=== PATIENT | male | born 1995 | race Caucasian/White ===

== ENCOUNTER 2016-04-21 01:44 | Emergency (ER) | payer BC ==
[~2016-04-21] VITALS: Ht 190.5 cm; Wt 96.1 kg
[2016-04-21 01:48] VITALS: TEMP 37; Ht 190.5 cm; Wt 96.1 kg
[2016-04-21] MEDS ORDERED: AMPH30CA3 PO (02:43)
--- NOTE | 2016-04-21 02:56 | EMERGENCY ROOM VISIT NOTE ---
History First contact with patient: 01:55 Chief Complaint: RIB PAIN Stated Complaint: DIFFICULTY BREATHING,SORE RIBS,UPPER ABD PAIN History of Present Illness The patient is a 20 year old male who presents to the Emergency Room with complaints of right-sided rib pain after he fell. Patient states he was running on the porch and jumped over the railing and dove in the snow with the tube. Patient states he jumped on the tube but hit the ground instead. This happened at noon today. It is now 2 AM in the morning. Patient states he's been drinking alcohol this afternoon but nothing recently and does not feel overly intoxicated at this time. Patient states that he went sledding four more times and fell a few more times. Patient complains of right-sided chest pain described as aching, ranging in severity currently 5 out of 10 worse with breathing and better with rest. Movement makes it worse and nothing makes it better. No prior fractures to these areas. Patient denies abdominal pain, back pain, head injury, neck pain, headache, arm pain, leg pain, numbness, tingling, drug use. Review of Systems See HPI for pertinent positives & negatives. A total of 10 systems reviewed and were otherwise negative. Past Medical/Surgical History None Social History Smoking Status: Never Smoker Smokeless Tobacco Use: No Alcohol Use: occasionally Drug Use: none Occupation Status: [employer] student Current/Historical Medications Scheduled Amphetamine-Dextroamphetamine 30MG (Adderall Xr 30MG), 30 MG PO DAILY Allergies Coded Allergies: No Known Allergies (Unverified , 04/21/16) Physical Exam Vital Signs Date Time Temp Pulse Resp B/P Pulse Ox O2 Delivery O2 Flow Rate FiO2 04/21/16 01:48 37.0 75 18 109/66 99 Room Air Physical Exam PHYSICAL EXAM: VITALS: Vitals are noted on the nurse's note and reviewed by myself. Vital signs stable. GENERAL: Pleasant male, in no acute distress, nondiaphoretic, well-developed well-nourished. SKIN: The skin was without obvious lacerations or abrasions. Capillary reflex less than 2 seconds. HEAD: Normocephalic atraumatic. EARS: External auditory canals clear, tympanic membranes pearly isidro without erythema or effusion bilaterally. No hemotympanums. No long sign. No mastoid tenderness. EYES: Pupils equal round and reactive to light and accommodation. Conjunctivae without injection, sclerae without icterus. Extraocular movements intact. NOSE: Patent, turbinates without inflammation or discharge. No sinus tenderness. No septal hematoma or bleeding. FACE: No facial bone tenderness. Full range of motion of the jaw without tenderness. MOUTH: Mucous membranes moist. Pharynx without erythema or exudate. Uvula midline. Airway patent. Tongue does not deviate. NECK: Supple without nuchal rigidity. Cervical spine is nontender. Full range of motion of the neck without tenderness. No JVD. HEART: Regular rate and rhythm without murmurs gallops or rubs. LUNGS: Clear to auscultation bilaterally without wheezes, rales or rhonchi. No dullness to percussion. No retractions or accessory muscle use. Right-sided chest wall tenderness. ABDOMEN: Positive bowel sounds x 4. Normal tympanic percussion. Soft, nontender, without masses or organomegaly. No guarding or rebound tenderness. MUSCULOSKELETAL: No tenderness of the thoracic or lumbar spine. No tenderness with pelvic rocking. Full range of motion without tenderness to palpation in all extremities. Normal gait. Strength 5/5 throughout. Peripheral pulses 2+. NEURO: Patient was alert and oriented to person place and time. Normal Mini- Mental status exam. Normal sensation to light and sharp touch. Negative Romberg and pronator drift. Cerebellar function intact. No focal neurological deficits. Medical Decision & Procedures ED Course Prior records/ancillary studies reviewed. Triage Nursing notes reviewed. The patient's history was concerning for chest pain after fall. Differential diagnosis: Etiologies such as rib fracture, pulmonary contusion, cardiac ischemia, aortic dissection, pulmonary embolism, pneumonia, pneumothorax, musculoskeletal, infections, pericarditis, myocarditis, esophageal rupture, gastrointestinal, as well as others were entertained. Physical examination: As above. ER treatment provided: Incentive spirometry On reassessment the patient felt better. Diagnostic interpretation by me: Imaging studies: CT CHEST Without Contrast: No fracture. No pneumothorax or hemothorax. Radiologist: Prabhu Chamberlain M.D. Exam and history seem consistent with chest wall injury after falling on it. Patient was advised to do incentive spirometry. He was advised to avoid sledding and jumping off the porch in the future. He was advised follow-up health services in a few days or here in the ER sooner for chest pain, abdominal pain, fevers, difficulty breathing, worsening signs or symptoms or as needed. Patient did not have an acute abdomen on exam. He is able to jump up and down without pain. No other injuries were noted. He was well-appearing. He ambulates out of the ER without difficulties.By the evaluation outlined above emergent etiologies such as cardiac ischemia, aortic dissection, pulmonary embolism, pneumonia, pneumothorax, infections, pericarditis, myocarditis, gastrointestinal, as well as others were deemed relatively unlikely. The pt informed about the findings as listed above. All questions were answered and pleased with the treatment. Return instructions were outlined and the patient was discharged in stable condition. Referral: The patient was referred back to primary care physician for follow-up in 2 to 3 days for a recheck of the current condition. Medical Decision As above Impression Primary Impression: Chest wall injury Departure Information Dispostion Home / Self-Care Condition GOOD Referrals [facility] (PCP) Patient Instructions [facility] Additional Instructions Incentive spirometry 10 times an hour for the next 2 weeks while you're awake. Ibuprofen(Motrin, Advil) may be used for fever or pain. Use 600mg every six hours as needed. Take with food. Avoid using more than 2400mg in a 24 hour period. Do not use 2400mg per day for more than three consecutive days without physician direction. Prolonged inappropriate use can lead to stomach upset or ulcers. (AND/OR) Acetaminophen(Tylenol) may be used for fever or pain. Use 1000mg every six hours as needed. Avoid using more than 3000mg in a 24 hour period. Rest and drink plenty of fluids as tolerated. Continue current medications. Avoid strenuous activities and anything that worsens your pain. Resume normal activities once your symptoms resolve. Return to the ER immediately for worsening or persistent chest pain, abdominal pain, vomiting, fevers, chest pains, difficulty breathing, worsening of your condition, or as needed. Follow up with your primary physician in 2-3 days for a recheck of your current condition. Problem Qualifiers Primary Impression: Chest wall injury Encounter type: initial encounter Qualified Codes: S29.9XXA - Unspecified injury of thorax, initial encounter
[2016-04-21 03:00] VITALS: BP 127/72; PULSE 100; O2SAT 97
--- NOTE | 2016-04-21 07:47 | DIAGNOSTIC IMAGING REPORT ---
CHEST CT WITHOUT CONTRAST CT DOSE: 449.02 mGy.cm HISTORY: Right-sided chest pain after fall. TECHNIQUE: Multiaxial CT images of the chest were performed without contrast. COMPARISON: None. FINDINGS: The central airways are patent. No pneumothorax. No pleural effusions. Trace pneumomediastinum primarily at the subcarinal location adjacent to the mid to distal esophagus. Small focal groundglass opacity within the left lower lobe medially adjacent to the heart border on image 188. Evaluation for mediastinal injury is limited due to the lack of intravenous contrast. However, there is no evidence for mediastinal hematoma. No pericardial effusion. The esophagus is normal in course and caliber. There is normal caliber thoracic aorta. No mediastinal or hilar lymphadenopathy. No fractures within the visualized osseous structures. Evaluation for solid abdominal visceral injury is also limited due to the lack of intravenous contrast. However, the visualized liver, spleen, and adrenal glands are unremarkable. IMPRESSION: 1. Trace pneumomediastinum surrounding the mid to distal esophagus. However, the esophagus is normal in course and caliber. 2. Small focal ground glass airspace opacity within the left lower lobe immediately adjacent to the heart border. This could be due to small focus of aspiration. A contusion is considered less likely given the location. 3. Findings discussed with Dr. Watts at 7:45 AM on 04/21/2016. Electronically signed by: Mohan Mcclure M.D. 04/21/2016 7:45 AM Dictated Date/Time: 04/21/2016 7:29 AM
== END 2016-04-21 03:01 | disposition home or self-care (01) ==
LOC: C.EDB 01:46
DX: S29.9XXA Unspecified injury of thorax, initial encounter (principal); W17.89XA Other fall from one level to another, initial encounter; Y93.23 Activity, snow (alpine) (downhill) skiing, snowboarding, sledding, tobogganing and snow tubing; Z79.899 Other long term (current) drug therapy

== ENCOUNTER 2016-10-24 20:55 | Emergency (ER) | payer BC, OTHER ==
[~2016-10-24] VITALS: Ht 190.5 cm; Wt 94.0 kg
[~2016-10-24 20:55] MED LIST: AMPH30CA3 PO
[2016-10-24 20:58] VITALS: TEMP 36.6; Ht 190.5 cm; Wt 94.0 kg
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
[2016-10-24] MEDS ORDERED: AMOXICIL/CLAVU 875MG HOME PACK PO ONE (23:15)
[2016-10-24] MEDS ORDERED: AMOX875T PO (23:17)
[2016-10-24 23:59] VITALS: BP 132/70; PULSE 93; O2SAT 99
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
== END 2016-10-25 00:03 | disposition home or self-care (01) ==
LOC: C.EDB 20:56 → C.EDD 10-25 00:03
DX: S02.32XA Fracture of orbital floor, left side, initial encounter for closed fracture (principal); S09.90XA Unspecified injury of head, initial encounter; W50.0XXA Accidental hit or strike by another person, initial encounter; Y93.71 Activity, boxing; F90.9 Attention-deficit hyperactivity disorder, unspecified type; Z79.899 Other long term (current) drug therapy